=== PATIENT | male | born 1950 | race Asian ===

== ENCOUNTER 2017-11-21 11:24 | Inpatient (IN) | payer MEDICARE ==
[~2017-11-21] VITALS: Ht 162.6 cm; Wt 77.8 kg
[2017-11-21] MEDS ORDERED: SODIUM CHLORIDE 0.9% 1,000 ML IVB ONE (11:30)
[2017-11-21 12:25] LABS: Basophils # (auto) 0 uL; Eosinophils # (auto) 0.1 uL; Eosinophils % (auto) 2.7 % (0.0-7.0); Hematocrit 46.2 % (41.0-53.0); Hemoglobin 15.4 g/dL (13.5-17.5); Lymphocytes # (auto) 1.1 uL; Lymphocytes % (auto) 25.1 % (10.0-50.0); Mean Corpuscular Hemoglobin 32.1 pg (28.0-32.0); Mean Corpuscular Hgb Conc. 33.3 g/dL (32.0-36.0); Mean Corpuscular Volume 96.4 fL (80.0-100.0); Monocytes # (auto) 0.3 uL; Monocytes % (auto) 7.6 % (0.0-12.0); Neutrophils # (auto) 2.9 uL; Neutrophils % (auto) 63.6 % (37.0-80.0); Nucleated Red Blood Cells % 0.1 %; Platelet Count (auto) 264 10^3/uL (140-450); Red Cell Distribution Width 13.5 % (11.8-14.3); White Blood Cell 4.6 10^3/uL (4.4-10.8)
[2017-11-21 12:37] LABS: INR 0.97 (0.9-1.15); Partial Thromboplastin Time 24.7 sec (22.64-33.71); Prothrombin Time 10.6 sec (9.37-12.3)
[2017-11-21 12:57] LABS: Alanine Aminotransferase 19 U/L (16-61); Albumin 3.3 g/dL (3.4-5.0); Alkaline Phosphatase 53 U/L (45-117); Anion Gap 8 (5-15); Aspartate Aminotransferase 13 U/L (15-37); BUN/Creatinine Ratio 16.1; Bilirubin, Total 0.5 mg/dL (0.2-1.0); Blood Alcohol < 3.0 mg/dL (0-5); Blood Urea Nitrogen 19 mg/dL (7-18); Carbon Dioxide 25 mmol/L (21-32); Chloride 106 mmol/L (98-107); GFR African American 79 mL/min; GFR Non-African American 65 mL/min; Glucose 145 mg/dL (74-106); Magnesium 2.8 mg/dL (1.6-2.6); Potassium 4.9 mmol/L (3.5-5.1); Sodium 139 mmol/L (136-145); Total Protein 7.3 g/dL (6.4-8.2)
[2017-11-21] MEDS ORDERED: LORazepam 0.5 MG TAB PO PRN (13:45)
[2017-11-21] MEDS ORDERED: HYDROcodone-ACET 5/325MG TAB PO PRN (13:45)
[2017-11-21] MEDS ORDERED: MORPHINE SULFATE 10 MG/ML INJ 1ML SDV IV PRN (13:45)
[2017-11-21] MEDS ORDERED: TEMAZEPAM 15 MG CAP PO PRN (13:45)
[2017-11-21] MEDS ORDERED: ACETAMINOPHEN 500 MG TAB PO PRN (13:45)
[2017-11-21] MEDS ORDERED: LACTULOSE 20Gm/30ML SOLN PO PRN (13:45)
[2017-11-21] MEDS ORDERED: DEXTROSE (50%) 50ML SYRG IV PRN (13:45)
[2017-11-21] MEDS ORDERED: NITROGLYCERIN 0.4 MG SL TAB SL PRN (13:45)
[2017-11-21] MEDS ORDERED: MORPHINE SULF INJ 2 MG/ML SYRINGE 1ML IV PRN (13:45)
[2017-11-21] MEDS: SODIUM CHLORIDE 0.9% 1,000 ML IV SCH ×2 (14:02→21:47)
[2017-11-21] MEDS ORDERED: ENOXAPARIN SOD 60 MG/0.6 ML SYRINGE SC ONE (14:15)
[2017-11-21 15:44] LABS: Urine Bacteria NONE SEEN /hpf (None Seen); Urine Blood Negative /uL (Negative); Urine Mucus FEW (None Seen); Urine Specific Gravity 1.009 (1.001-1.035); Urine WBC <1 /hpf (0 - 3)
[2017-11-21 15:46] LABS: Alcohol, Urine < 3.0 mg/dL (0-5); Amphetamine Screen, Urine NEGATIVE (NEGATIVE); Barbiturate Scree,Urine NEGATIVE (NEGATIVE); Benzodiazephine Screen, Urine NEGATIVE (NEGATIVE); Cannabinoid Screen, Urine NEGATIVE (NEGATIVE); Cocaine Screen, Urine NEGATIVE (NEGATIVE); Opiate Scree,Urine NEGATIVE (NEGATIVE); Phencyclidine Screen, Urine NEGATIVE (NEGATIVE)
[2017-11-21] MEDS: ACCU-CHEK COMFORT CURVE STRIP VI SCH (18:00)
[2017-11-21] MEDS ORDERED: MORPHINE SULFATE 4 MG/ML SYR/VIAL IV PRN ×2 (19:45)
[2017-11-21] MEDS: ENOXAPARIN SOD 60 MG/0.6 ML SYRINGE SC SCH (21:47)
[2017-11-21 22:00] VITALS: BP 136/74
[2017-11-22] VITALS (7 sets, daily range): BP systolic 121–155; BP diastolic 69–105
[2017-11-22] MEDS: ACCU-CHEK COMFORT CURVE STRIP VI SCH ×5 (00:02→21:54)
[2017-11-22 08:24] LABS: Cholesterol 181 mg/dL (< 200); HDL Cholesterol 59 mg/dL (40-59); LDL Cholesterol 111 mg/dL (< 100); Triglycerides 141 mg/dL (< 150)
[2017-11-22] MEDS: ASPirin 81 mg TAB PO SCH (09:20)
[2017-11-22] MEDS: SODIUM CHLORIDE 0.9% 1,000 ML IV SCH ×2 (09:21→16:09)
[2017-11-22] MEDS: ENOXAPARIN SOD 60 MG/0.6 ML SYRINGE SC SCH ×2 (09:21→22:15)
[2017-11-22] MEDS ORDERED: ENOXAPARIN SOD 40 MG/0.4 ML SYRINGE SC SCH (10:00)
[2017-11-22] MEDS ORDERED: METOPROLOL TARTRATE 25 MG TAB PO ONE (15:45)
[2017-11-22] MEDS ORDERED: PANTOPRAZOLE 40 MG TAB PO ONE (15:45)
[2017-11-22] MEDS ORDERED: DEXTROSE (50%) 50ML SYRG IV PRN (15:45)
[2017-11-22] MEDS: InsuLIN REG 1unit/0.01ml Soln (100units/ml) SC SCH ×2 (16:55→21:53)
[2017-11-22] MEDS ORDERED: ATORVASTATIN 20 MG TAB PO SCH (22:00)
[2017-11-22] MEDS: PROMETHAZINE HCL 25 MG/ML 1ML IV PRN (22:15)
[2017-11-22] MEDS: METOPROLOL TARTRATE 25 MG TAB PO SCH (22:15)
[2017-11-23 05:00] VITALS: BP 154/101
[2017-11-23] MEDS: PROMETHAZINE HCL 25 MG/ML 1ML IV PRN (05:59)
[2017-11-23] MEDS: SODIUM CHLORIDE 0.9% 1,000 ML IV SCH (06:30)
[2017-11-23] MEDS: InsuLIN REG 1unit/0.01ml Soln (100units/ml) SC SCH ×2 (06:32→11:21)
[2017-11-23] MEDS: ACCU-CHEK COMFORT CURVE STRIP VI SCH ×2 (06:32→11:21)
[2017-11-23 07:03] LABS: Basophils # (auto) 0.1 uL; Basophils % (auto) 0.9 % (0.0-2.0); Eosinophils # (auto) 0.2 uL; Hematocrit 41.5 % (41.0-53.0); Lymphocytes # (auto) 2.6 uL; Lymphocytes % (auto) 45.1 % (10.0-50.0); Mean Corpuscular Hgb Conc. 33.7 g/dL (32.0-36.0); Mean Corpuscular Volume 95.1 fL (80.0-100.0); Monocytes # (auto) 0.6 uL; Monocytes % (auto) 9.6 % (0.0-12.0); Neutrophils # (auto) 2.4 uL; Neutrophils % (auto) 40.4 % (37.0-80.0); Nucleated Red Blood Cells % 0.1 %; Platelet Count (auto) 242 10^3/uL (140-450); Red Blood Cells 4.36 10^6/uL (4.5-5.90); Red Cell Distribution Width 13.3 % (11.8-14.3); White Blood Cell 5.9 10^3/uL (4.4-10.8)
[2017-11-23 07:27] LABS: BUN/Creatinine Ratio 18.5; Calcium 8.1 mg/dL (8.5-10.1); Potassium 3.7 mmol/L (3.5-5.1)
[2017-11-23 08:00] VITALS: BP 140/89
[2017-11-23 08:20] VITALS: BP 140/89
[2017-11-23] MEDS: ASPirin 81 mg TAB PO SCH (09:50)
[2017-11-23] MEDS: METOPROLOL TARTRATE 25 MG TAB PO SCH (09:50)
[2017-11-23] MEDS: ENOXAPARIN SOD 60 MG/0.6 ML SYRINGE SC SCH (09:51)
[2017-11-23] MEDS ORDERED: PANTOPRAZOLE 40 MG TAB PO SCH (10:00)
[2017-11-23 12:43] VITALS: BP 124/89
[2017-11-23 14:46] VITALS: BP 124/89
== END 2017-11-23 15:40 | disposition home or self-care (01) | DRG 315 ==
LOC: ER 11:24 → TELE 11:25 → TELE-WESTW 20:47
PROVIDERS: ADMIT Internal Medicine; ATTEND Internal Medicine
DX: I95.9 Hypotension, unspecified (principal); D68.69 Other thrombophilia; I48.91 Unspecified atrial fibrillation; E11.65 Type 2 diabetes mellitus with hyperglycemia; R55 Syncope and collapse; E78.00 Pure hypercholesterolemia, unspecified; I10 Essential (primary) hypertension; I67.2 Cerebral atherosclerosis; K21.9 Gastro-esophageal reflux disease without esophagitis; Z87.11 Personal history of peptic ulcer disease; Z79.82 Long term (current) use of aspirin
CPT/HCPCS: 36415; 70450; 71045; 80048; 80053; 80061; 80307; 80320; 81001; 82550; 82962; 83036; 83735; 84443; 84484; 85025; 85379; 85610; 85652; 85730; 86141; 93005; 93306; 96360; 96372

== ENCOUNTER 2020-10-14 22:10 | Inpatient (IN) | payer MEDICARE ==
[~2020-10-14] VITALS: Ht 180.3 cm; Wt 65.6 kg
[2020-10-14 23:55] LABS: Basophils # (auto) 0 10 ^3/uL (0-0.2); Basophils % (auto) 0.1 % (0.0-2.0); Eosinophils # (auto) 0.1 10 ^3/uL (0-0.8); Eosinophils % (auto) 1.4 % (0.0-7.0); Hematocrit 41.9 % (41.0-53.0); Hemoglobin 14.5 g/dL (13.5-17.5); Mean Corpuscular Hemoglobin 32.2 pg (28.0-32.0); Mean Corpuscular Hgb Conc. 34.7 g/dL (32.0-36.0); Mean Corpuscular Volume 92.8 fL (80.0-100.0); Monocytes # (auto) 0.4 10 ^3/uL (0-1.3); Monocytes % (auto) 3.7 % (0.0-12.0); Neutrophils # (auto) 8.7 10 ^3/uL (1.6-8.6); Neutrophils % (auto) 84.8 % (37.0-80.0); Platelet Count (auto) 311 10^3/uL (140-450); Red Blood Cells 4.51 10^6/uL (4.5-5.90); Red Cell Distribution Width 13.5 % (11.8-14.3); White Blood Cell 10.3 10^3/uL (4.4-10.8)
[2020-10-15 00:10] LABS: Albumin 2.2 g/dL (3.4-5.0); Anion Gap 8 (5-15); Blood Urea Nitrogen 30 mg/dL (7-18); Calcium 7.8 mg/dL (8.5-10.1); Carbon Dioxide 25 mmol/L (21-32); Chloride 98 mmol/L (98-107); Glucose 187 mg/dL (74-106); Potassium 3.2 mmol/L (3.5-5.1); Sodium 131 mmol/L (136-145)
[2020-10-15 00:22] LABS: Alanine Aminotransferase 53 U/L (16-61); Alkaline Phosphatase 106 U/L (45-117); Aspartate Aminotransferase 51 U/L (15-37); BUN/Creatinine Ratio 31.3; Bilirubin, Total 0.6 mg/dL (0.2-1.0); GFR African American 100 mL/min; GFR Non-African American 82 mL/min; Total Protein 7.5 g/dL (6.4-8.2)
[2020-10-15] MEDS ORDERED: AZITHROMYCIN 500MG/ 250ML 250 ML IV ONE (02:00)
[2020-10-15] MEDS ORDERED: methylPREDNISolone SOD SUCC 125 MG/2 ML VL IV ONE (02:00)
[2020-10-15] MEDS ORDERED: ENOXAPARIN SOD 80 MG/0.8ML SYRINGE SC ONE (03:00)
[2020-10-15] MEDS ORDERED: ACETAMINOPHEN 500 MG TAB PO PRN (05:00)
[2020-10-15] MEDS ORDERED: MORPHINE SULF INJ 2 MG/ML SYRINGE 1ML IV PRN (05:00)
[2020-10-15] MEDS ORDERED: POTASSIUM CHL 20 Meq TABLET PO ONE (05:00)
[2020-10-15] MEDS ORDERED: DOCUSATE SOD 100 MG CAP PO PRN (05:00)
[2020-10-15] MEDS ORDERED: MORPHINE SULFATE 4 MG/ML SYR/VIAL IV PRN (05:00)
[2020-10-15] MEDS ORDERED: ONDANSETRON HCL 4 MG/2 ML VIAL IV PRN (05:00)
[2020-10-15] MEDS ORDERED: NITROGLYCERIN 0.4 MG SL TAB SL PRN (05:00)
[2020-10-15] MEDS ORDERED: HYDROcodone-ACET 5/325MG TAB PO PRN (05:00)
[2020-10-15] MEDS: SODIUM CHLOR 0.9% PF (SALINE LOCK) 10ML VIAL/SYR IV SCH ×3 (06:17→23:34)
[2020-10-15] MEDS ORDERED: HEPARIN SODIUM (PORCINE) 5000 UNITS/ML 1ML VIAL SC SCH (10:00)
[2020-10-15 10:39] LABS: Basophils # (auto) 0 10 ^3/uL (0-0.2); Eosinophils # (auto) 0.1 10 ^3/uL (0-0.8); Eosinophils % (auto) 1.3 % (0.0-7.0); Hematocrit 40.2 % (41.0-53.0); Hemoglobin 14.1 g/dL (13.5-17.5); Lymphocytes # (auto) 0.5 10 ^3/uL (0.4-5.4); Lymphocytes % (auto) 5.7 % (10.0-50.0); Mean Corpuscular Hemoglobin 32.7 pg (28.0-32.0); Mean Corpuscular Hgb Conc. 35.1 g/dL (32.0-36.0); Mean Corpuscular Volume 93.3 fL (80.0-100.0); Monocytes # (auto) 0.1 10 ^3/uL (0-1.3); Monocytes % (auto) 0.8 % (0.0-12.0); Neutrophils # (auto) 8.3 10 ^3/uL (1.6-8.6); Neutrophils % (auto) 92.2 % (37.0-80.0); Nucleated Red Blood Cells % 0.1 %; Platelet Count (auto) 324 10^3/uL (140-450); Red Blood Cells 4.31 10^6/uL (4.5-5.90); Red Cell Distribution Width 13.2 % (11.8-14.3)
[2020-10-15 10:41] LABS: Potassium 4.9 mmol/L (3.5-5.1)
[2020-10-15 10:48] LABS: Albumin 2.1 g/dL (3.4-5.0); BUN/Creatinine Ratio 34.8; Bilirubin, Total 0.7 mg/dL (0.2-1.0); Calcium 8.4 mg/dL (8.5-10.1); Magnesium 2.7 mg/dL (1.6-2.6); Total Protein 7.7 g/dL (6.4-8.2)
[2020-10-15 11:30] LABS: INR 1.18 (0.9-1.15); Partial Thromboplastin Time 30.8 sec (23.0-31.2)
[2020-10-15] MEDS: ZINC SULFATE 220mg CAP or TAB PO SCH (11:31)
[2020-10-15] MEDS: ASCORBIC ACID 1,000 MG TAB PO SCH (11:31)
[2020-10-15] MEDS: DexAMETHasone SOD PHOS 10MG/1ML VIAL INJ IV SCH (11:51)
[2020-10-15] MEDS: FAMOTIDINE (10MG/ML) 2ML VL IV SCH ×2 (11:53→23:34)
[2020-10-15] MEDS: DOXYCYCLINE 100MG/250ML 250 ML IV SCH ×2 (11:54→23:34)
[2020-10-15] MEDS: MULTIPLE VITAMIN TAB PO SCH (11:54)
[2020-10-15] MEDS: CHOLECALCIFEROL (VITD3) 2,000 UNIT CAP PO SCH (11:54)
[2020-10-15] MEDS: BUDESONIDE (INHALATION) 180 MCG IH IN SCH ×2 (12:15→22:00)
[2020-10-15] MEDS: cefTRIAXone 1GM/50ML D5W 50 ML IV SCH (15:00)
[2020-10-15] MEDS: ENOXAPARIN SOD 100 MG/1 ML SYRINGE SC SCH (18:25)
[2020-10-15] MEDS ORDERED: dilTIAZem 25 MG/5 ML VIAL IV ONE ×2 (23:14→23:45)
[2020-10-16] MEDS: ENOXAPARIN SOD 100 MG/1 ML SYRINGE SC SCH ×2 (06:00→18:59)
[2020-10-16] MEDS: SODIUM CHLOR 0.9% PF (SALINE LOCK) 10ML VIAL/SYR IV SCH ×3 (06:09→22:16)
[2020-10-16 06:39] LABS: Hemoglobin 14.2 g/dL (13.5-17.5); Mean Corpuscular Hemoglobin 32.6 pg (28.0-32.0); Mean Corpuscular Hgb Conc. 35.4 g/dL (32.0-36.0); Platelet Count (auto) 370 10^3/uL (140-450); Red Blood Cells 4.35 10^6/uL (4.5-5.90); Red Cell Distribution Width 13.3 % (11.8-14.3); White Blood Cell 12.6 10^3/uL (4.4-10.8)
[2020-10-16 06:55] LABS: Band Neutrophils % (manual) 0; Basophils % (manual) 0 (0.0-2.0); Blast Cells 0; Eosinophils % (manual) 0 (0-7); Myelocytes % 0; Promyelocytes % 0; Reactive Lymphocytes 0
[2020-10-16 06:58] LABS: INR 1.16 (0.9-1.15); Partial Thromboplastin Time 30.5 sec (23.0-31.2)
[2020-10-16 07:05] LABS: Albumin 2.2 g/dL (3.4-5.0); Calcium 8.2 mg/dL (8.5-10.1); Potassium 3.6 mmol/L (3.5-5.1)
[2020-10-16 07:08] LABS: BUN/Creatinine Ratio 35.7
[2020-10-16 07:13] LABS: Bilirubin, Total 0.4 mg/dL (0.2-1.0); Total Protein 7.1 g/dL (6.4-8.2)
[2020-10-16 07:23] LABS: Lymphocytes % (manual) 15 (10.0-50.0)
[2020-10-16 07:24] LABS: Metamyelocytes % 3; Monocytes % (manual) 1 (0-12)
[2020-10-16] MEDS ORDERED: DEXTROSE (50%) 50ML SYRG IV PRN (09:30)
[2020-10-16] MEDS ORDERED: REMDESIVIR PER PHARMACY 0 ML IV SCH (09:30)
[2020-10-16] MEDS: FAMOTIDINE (10MG/ML) 2ML VL IV SCH ×2 (11:00→22:16)
[2020-10-16] MEDS: cefTRIAXone 1GM/50ML D5W 50 ML IV SCH (11:00)
[2020-10-16] MEDS: DexAMETHasone SOD PHOS 10MG/1ML VIAL INJ IV SCH (11:00)
[2020-10-16] MEDS: ZINC SULFATE 220mg CAP or TAB PO SCH (11:00)
[2020-10-16] MEDS: CHOLECALCIFEROL (VITD3) 2,000 UNIT CAP PO SCH (11:01)
[2020-10-16] MEDS: ASCORBIC ACID 1,000 MG TAB PO SCH (11:01)
[2020-10-16] MEDS: DOXYCYCLINE 100MG/250ML 250 ML IV SCH ×2 (12:06→22:16)
[2020-10-16] MEDS: BUDESONIDE (INHALATION) 180 MCG IH IN SCH ×3 (12:06→22:16)
[2020-10-16] MEDS: ACCU-CHEK COMFORT CURVE STRIP VI SCH ×3 (12:06→22:00)
[2020-10-16] MEDS: MULTIPLE VITAMIN TAB PO SCH (12:07)
[2020-10-16] MEDS: InsuLIN REG 1unit/0.01ml Soln (100units/ml) SC SCH ×2 (12:27→20:02)
[2020-10-16] MEDS ORDERED: REMDESIVIR 200 MG in NS 210ml LOADING DOSE ADULT IV ONE (15:00)
[2020-10-16] MEDS ORDERED: AMLO5TAB15 PO (23:30)
[2020-10-17] VITALS: BP 138/77
[2020-10-17] MEDS: InsuLIN REG 1unit/0.01ml Soln (100units/ml) SC SCH ×5 (00:27→22:05)
[2020-10-17] MEDS: ENOXAPARIN SOD 100 MG/1 ML SYRINGE SC SCH ×2 (05:22→17:37)
[2020-10-17] MEDS: SODIUM CHLOR 0.9% PF (SALINE LOCK) 10ML VIAL/SYR IV SCH ×3 (05:22→21:49)
[2020-10-17] MEDS: ACCU-CHEK COMFORT CURVE STRIP VI SCH ×4 (05:58→22:04)
[2020-10-17] MEDS: ALBUTEROL SULF HFA 90MCG INH 200DOSE IN PRN (07:49)
[2020-10-17] MEDS: BUDESONIDE (INHALATION) 180 MCG IH IN SCH ×2 (07:49→22:00)
[2020-10-17 08:00] VITALS: BP 113/77
[2020-10-17] MEDS: cefTRIAXone 1GM/50ML D5W 50 ML IV SCH (08:54)
[2020-10-17] MEDS: DOXYCYCLINE 100MG/250ML 250 ML IV SCH ×2 (10:32→21:50)
[2020-10-17] MEDS: FAMOTIDINE (10MG/ML) 2ML VL IV SCH ×2 (10:33→21:49)
[2020-10-17] MEDS: ZINC SULFATE 220mg CAP or TAB PO SCH (10:33)
[2020-10-17] MEDS: DexAMETHasone SOD PHOS 10MG/1ML VIAL INJ IV SCH (10:33)
[2020-10-17] MEDS: MULTIPLE VITAMIN TAB PO SCH (10:34)
[2020-10-17] MEDS: ASCORBIC ACID 1,000 MG TAB PO SCH (10:34)
[2020-10-17] MEDS: CHOLECALCIFEROL (VITD3) 2,000 UNIT CAP PO SCH (10:34)
[2020-10-17] MEDS: REMDESIVIR 100 MG in SODIUM CHL 0.9% 250 ML IV SCH (15:00)
[2020-10-17 16:00] VITALS: BP 105/53
[2020-10-17 18:01] LABS: Urine Bacteria NONE SEEN /hpf (None Seen); Urine Blood Negative /uL (Negative); Urine Mucus FEW (None Seen); Urine Specific Gravity 1.022 (1.001-1.035); Urine WBC 1 /hpf (0 - 3)
[2020-10-18] VITALS: BP 153/94
[2020-10-18] MEDS: ENOXAPARIN SOD 100 MG/1 ML SYRINGE SC SCH ×2 (05:47→17:27)
[2020-10-18] MEDS: SODIUM CHLOR 0.9% PF (SALINE LOCK) 10ML VIAL/SYR IV SCH ×3 (05:47→21:23)
[2020-10-18] MEDS: ACCU-CHEK COMFORT CURVE STRIP VI SCH ×4 (05:54→21:23)
[2020-10-18] MEDS: InsuLIN REG 1unit/0.01ml Soln (100units/ml) SC SCH ×4 (05:54→21:45)
[2020-10-18 07:01] LABS: Hematocrit 39.4 % (41.0-53.0); Hemoglobin 13.4 g/dL (13.5-17.5); Mean Corpuscular Hemoglobin 31.7 pg (28.0-32.0); Mean Corpuscular Hgb Conc. 33.9 g/dL (32.0-36.0); Mean Corpuscular Volume 93.5 fL (80.0-100.0); Platelet Count (auto) 383 10^3/uL (140-450); Red Blood Cells 4.22 10^6/uL (4.5-5.90)
[2020-10-18 07:20] LABS: Band Neutrophils % (manual) 0; Basophils % (manual) 0 (0.0-2.0); Blast Cells 0; Eosinophils % (manual) 0 (0-7); Metamyelocytes % 0; Promyelocytes % 0; Reactive Lymphocytes 0
[2020-10-18 07:47] LABS: BUN/Creatinine Ratio 33.8; Calcium 7.9 mg/dL (8.5-10.1); Potassium 3.5 mmol/L (3.5-5.1)
[2020-10-18] MEDS: ALBUTEROL SULF HFA 90MCG INH 200DOSE IN PRN ×2 (07:55→19:45)
[2020-10-18] MEDS: BUDESONIDE (INHALATION) 180 MCG IH IN SCH ×2 (07:55→19:45)
[2020-10-18 08:00] VITALS: BP 137/89
[2020-10-18 08:22] LABS: Lymphocytes % (manual) 19 (10.0-50.0); Monocytes % (manual) 7 (0-12); Myelocytes % 2
[2020-10-18] MEDS: cefTRIAXone 1GM/50ML D5W 50 ML IV SCH (09:25)
[2020-10-18] MEDS: DexAMETHasone SOD PHOS 10MG/1ML VIAL INJ IV SCH (09:56)
[2020-10-18] MEDS: FAMOTIDINE (10MG/ML) 2ML VL IV SCH ×2 (09:56→21:23)
[2020-10-18] MEDS: ZINC SULFATE 220mg CAP or TAB PO SCH (09:56)
[2020-10-18] MEDS: MULTIPLE VITAMIN TAB PO SCH (09:56)
[2020-10-18] MEDS: ASCORBIC ACID 1,000 MG TAB PO SCH (09:56)
[2020-10-18] MEDS: CHOLECALCIFEROL (VITD3) 2,000 UNIT CAP PO SCH (09:58)
[2020-10-18] MEDS: DOXYCYCLINE 100MG/250ML 250 ML IV SCH ×2 (09:58→21:23)
[2020-10-18 10:33] LABS: Bilirubin, Direct 0.2 mg/dL (0-0.2); Bilirubin, Total 0.5 mg/dL (0.2-1.0); Total Protein 6.4 g/dL (6.4-8.2)
[2020-10-18] MEDS: REMDESIVIR 100 MG in SODIUM CHL 0.9% 250 ML IV SCH (15:40)
[2020-10-18 16:00] VITALS: BP 129/84
[2020-10-18] MEDS ORDERED: amLODIPine BESYLATE 5 MG TAB PO ONE (17:00)
[2020-10-19] VITALS: BP 147/100
[2020-10-19] MEDS: InsuLIN REG 1unit/0.01ml Soln (100units/ml) SC SCH ×4 (06:28→21:52)
[2020-10-19] MEDS: ENOXAPARIN SOD 100 MG/1 ML SYRINGE SC SCH (06:28)
[2020-10-19] MEDS: SODIUM CHLOR 0.9% PF (SALINE LOCK) 10ML VIAL/SYR IV SCH ×3 (06:28→21:47)
[2020-10-19] MEDS: ACCU-CHEK COMFORT CURVE STRIP VI SCH ×4 (06:28→21:48)
[2020-10-19 08:00] VITALS: BP 125/77
[2020-10-19 08:26] LABS: Basophils # (auto) 0.1 10 ^3/uL (0-0.2); Basophils % (auto) 1.2 % (0.0-2.0); Eosinophils # (auto) 0.1 10 ^3/uL (0-0.8); Eosinophils % (auto) 0.8 % (0.0-7.0); Hematocrit 41.6 % (41.0-53.0); Lymphocytes # (auto) 1.7 10 ^3/uL (0.4-5.4); Lymphocytes % (auto) 15.5 % (10.0-50.0); Mean Corpuscular Hemoglobin 31.4 pg (28.0-32.0); Mean Corpuscular Hgb Conc. 33.7 g/dL (32.0-36.0); Mean Corpuscular Volume 93.2 fL (80.0-100.0); Monocytes # (auto) 0.7 10 ^3/uL (0-1.3); Monocytes % (auto) 6.1 % (0.0-12.0); Neutrophils # (auto) 8.6 10 ^3/uL (1.6-8.6); Neutrophils % (auto) 76.4 % (37.0-80.0); Nucleated Red Blood Cells % 0.1 %; Platelet Count (auto) 404 10^3/uL (140-450); Red Blood Cells 4.47 10^6/uL (4.5-5.90); Red Cell Distribution Width 13.6 % (11.8-14.3); White Blood Cell 11.2 10^3/uL (4.4-10.8)
[2020-10-19 08:35] LABS: Potassium 3.7 mmol/L (3.5-5.1)
[2020-10-19] MEDS: cefTRIAXone 1GM/50ML D5W 50 ML IV SCH (08:45)
[2020-10-19 09:10] LABS: Albumin 2.1 g/dL (3.4-5.0); BUN/Creatinine Ratio 32.1; Bilirubin, Total 0.6 mg/dL (0.2-1.0); Total Protein 6.3 g/dL (6.4-8.2)
[2020-10-19 09:44] LABS: CRP High Sensitivity 1.55 mg/dL (< 0.3)
[2020-10-19] MEDS: ALBUTEROL SULF HFA 90MCG INH 200DOSE IN PRN ×2 (09:48→20:19)
[2020-10-19] MEDS: BUDESONIDE (INHALATION) 180 MCG IH IN SCH ×2 (09:48→20:18)
[2020-10-19] MEDS: ZINC SULFATE 220mg CAP or TAB PO SCH (09:55)
[2020-10-19] MEDS: FAMOTIDINE (10MG/ML) 2ML VL IV SCH ×2 (09:56→21:47)
[2020-10-19] MEDS: DexAMETHasone SOD PHOS 10MG/1ML VIAL INJ IV SCH (09:56)
[2020-10-19] MEDS: DOXYCYCLINE 100MG/250ML 250 ML IV SCH ×2 (09:57→21:48)
[2020-10-19] MEDS: MULTIPLE VITAMIN TAB PO SCH (09:57)
[2020-10-19] MEDS: amLODIPine BESYLATE 5 MG TAB PO SCH (09:57)
[2020-10-19] MEDS: ASCORBIC ACID 1,000 MG TAB PO SCH (09:57)
[2020-10-19] MEDS: CHOLECALCIFEROL (VITD3) 2,000 UNIT CAP PO SCH (09:58)
[2020-10-19] MEDS: REMDESIVIR 100 MG in SODIUM CHL 0.9% 250 ML IV SCH (15:22)
[2020-10-19 16:00] VITALS: BP 122/81
[2020-10-19] MEDS: APIXABAN 5 MG TAB PO SCH (21:48)
[2020-10-20] VITALS: BP 123/87
[2020-10-20] MEDS: SODIUM CHLOR 0.9% PF (SALINE LOCK) 10ML VIAL/SYR IV SCH ×3 (05:57→21:21)
[2020-10-20] MEDS: InsuLIN REG 1unit/0.01ml Soln (100units/ml) SC SCH ×4 (05:58→21:28)
[2020-10-20] MEDS: ACCU-CHEK COMFORT CURVE STRIP VI SCH ×4 (05:58→21:22)
[2020-10-20 07:54] VITALS: BP 134/90
[2020-10-20] MEDS: Glucerna Carbsteady SHAKE Vanilla 8oz PO SCH ×2 (08:00→18:00)
[2020-10-20] MEDS: FAMOTIDINE (10MG/ML) 2ML VL IV SCH (08:34)
[2020-10-20] MEDS: MULTIPLE VITAMIN TAB PO SCH (08:34)
[2020-10-20] MEDS: DexAMETHasone SOD PHOS 10MG/1ML VIAL INJ IV SCH (08:34)
[2020-10-20] MEDS: cefTRIAXone 1GM/50ML D5W 50 ML IV SCH (08:34)
[2020-10-20] MEDS: ZINC SULFATE 220mg CAP or TAB PO SCH (08:34)
[2020-10-20] MEDS: APIXABAN 5 MG TAB PO SCH ×2 (08:34→21:21)
[2020-10-20] MEDS: CHOLECALCIFEROL (VITD3) 2,000 UNIT CAP PO SCH (08:35)
[2020-10-20] MEDS: amLODIPine BESYLATE 5 MG TAB PO SCH (08:35)
[2020-10-20] MEDS: ASCORBIC ACID 1,000 MG TAB PO SCH (08:35)
[2020-10-20] MEDS: BUDESONIDE (INHALATION) 180 MCG IH IN SCH ×2 (10:00→21:17)
[2020-10-20 11:43] LABS: Albumin 2.2 g/dL (3.4-5.0); Potassium 4.5 mmol/L (3.5-5.1)
[2020-10-20 11:49] LABS: Bilirubin, Total 0.4 mg/dL (0.2-1.0); Total Protein 6.4 g/dL (6.4-8.2)
[2020-10-20] MEDS: REMDESIVIR 100 MG in SODIUM CHL 0.9% 250 ML IV SCH (15:20)
[2020-10-20 16:00] VITALS: BP 113/69
[2020-10-20] MEDS: ALBUTEROL SULF HFA 90MCG INH 200DOSE IN PRN (21:17)
[2020-10-20] MEDS: FAMOTIDINE 20 MG TAB PO SCH (21:21)
[2020-10-21] VITALS: BP 124/83
[2020-10-21] MEDS: SODIUM CHLOR 0.9% PF (SALINE LOCK) 10ML VIAL/SYR IV SCH ×2 (06:45→14:00)
[2020-10-21] MEDS: ACCU-CHEK COMFORT CURVE STRIP VI SCH ×2 (06:45→11:34)
[2020-10-21] MEDS: InsuLIN REG 1unit/0.01ml Soln (100units/ml) SC SCH ×2 (06:45→11:30)
[2020-10-21 08:00] VITALS: BP 115/71
[2020-10-21] MEDS: Glucerna Carbsteady SHAKE Vanilla 8oz PO SCH (08:00)
[2020-10-21] MEDS: cefTRIAXone 1GM/50ML D5W 50 ML IV SCH (09:59)
[2020-10-21] MEDS: ZINC SULFATE 220mg CAP or TAB PO SCH (10:00)
[2020-10-21] MEDS ORDERED: DexAMETHasone 4 MG TAB PO SCH (10:00)
[2020-10-21] MEDS: APIXABAN 5 MG TAB PO SCH (10:06)
[2020-10-21] MEDS: amLODIPine BESYLATE 5 MG TAB PO SCH (10:07)
[2020-10-21] MEDS: ASCORBIC ACID 1,000 MG TAB PO SCH (10:07)
[2020-10-21] MEDS: FAMOTIDINE 20 MG TAB PO SCH (10:07)
[2020-10-21] MEDS: CHOLECALCIFEROL (VITD3) 2,000 UNIT CAP PO SCH (10:08)
[2020-10-21] MEDS: MULTIPLE VITAMIN TAB PO SCH (10:09)
[2020-10-21] MEDS: ALBUTEROL SULF HFA 90MCG INH 200DOSE IN PRN (10:14)
[2020-10-21] MEDS: BUDESONIDE (INHALATION) 180 MCG IH IN SCH (10:14)
[2020-10-26] MEDS ORDERED: APIXABAN 5 MG TAB PO SCH (10:00)
== END 2020-10-21 16:05 | disposition home or self-care (01) | DRG 177 ==
LOC: ER 22:10 → TELE 10-15 05:01 → TELE-EAST 10-16 23:10
PROVIDERS: ADMIT Nurse Practitioner Family; ATTEND Internal Medicine
PROC: XW13325 Transfusion of Convalescent Plasma (Nonautologous) into Peripheral Vein, Percutaneous Approach, New Technology Group 5 (ICD-10-PCS; principal; 2020-10-16)
PROC: XW033E5 Introduction of Remdesivir Anti-infective into Peripheral Vein, Percutaneous Approach, New Technology Group 5 (ICD-10-PCS; 2020-10-16)
DX: U07.1 COVID-19 (principal); J96.01 Acute respiratory failure with hypoxia; J12.82 Pneumonia due to coronavirus disease 2019; I82.412 Acute embolism and thrombosis of left femoral vein; R65.10 Systemic inflammatory response syndrome (SIRS) of non-infectious origin without acute organ dysfunction; I10 Essential (primary) hypertension; E87.6 Hypokalemia; E11.9 Type 2 diabetes mellitus without complications; Z79.01 Long term (current) use of anticoagulants; Z79.899 Other long term (current) drug therapy; D89.839 Cytokine release syndrome, grade unspecified
CPT/HCPCS: 36415; 71045; 71275; 80048; 80053; 80076; 81001; 82306; 82728; 82962; 83036; 83615; 83735; 83880; 84443; 84484; 85007; 85025; 85027; 85379; 85610; 85730; 86141; 86850; 86900; 86901; 87426; 93005; 93971; 94640; 96365; 96372; 96375; G0378; J0696; J1100; J1815; J3490